=== PATIENT | male | born 2000 | race Caucasian/White ===

== ENCOUNTER 2021-08-12 15:26 | Emergency (ER) | payer BC, SELFPAY ==
[2021-08-12 15:33] VITALS: BP 147/84; PULSE 76; RESP 12; TEMP 36.5; O2SAT 100
--- NOTE | 2021-08-12 15:40 | ED.URI ---
HPI - URI/Sore Throat General Chief Complaint: Upper Respiratory Infection Stated Complaint: dx mono Time Seen by Provider: 08/12/21 15:40 Source: patient and family Mode of arrival: ambulatory Limitations: no limitations History of Present Illness HPI Narrative: Ezequiel Clark is a 21 yo male with no PMH who comes to express care with complaints of an otherwise diagnosed mono diagnosed 5 days ago. He was diagnosed at [place], has been taking steroids and is finished them. Continues to have sore throat and headache not feeling well Related Data Allergies Allergy/AdvReac Type Severity Reaction Status Date / Time No Known Allergies Allergy Verified 08/12/21 15:40 Review of Systems Review of Systems: CONSTITUTIONAL: Denies fever, chills, sweats. EYES: Denies visual changes, redness, discharge. ENT: Denies rhinorrhea, congestion, sore throat, otalgia. CARDIOVASCULAR: Denies chest pain, palpitations, edema. RESPIRATORY: Denies dyspnea, wheezing, cough GASTROINTESTINAL: Denies abdominal pain, nausea, vomiting, diarrhea. GENITOURINARY: Denies dysuria, hematuria, abnormal discharge SKIN: Denies rash or itching. NEUROLOGIC: Denies numbness, or focal weakness. PSYCHIATRIC: Denies anxiety or depression. [facility] Past Medical History Medical History Mononucleosis Social History Social History (Updated 08/12/21 @ 15:46 by Shakira Singh CNP) Living arrangements: dorm student housing Occupation/Education: student Comments At time of signature, I agree with nursing past medical, surgical, social and family history. There is no relevant family history pertinent to the presenting complaint. Patient's blood pressure is elevated during this visit due to situation for his visit and how poorly he felt, he has a PCP to follow-up with Exam Narrative: GENERAL: This is a well-nourished, well-developed patient, in mild distress. HEAD: normocephalic, atraumatic. EYES: PERRL. Sclera clear/white. Vision is grossly intact. EARS: External ears normal, auditory canals clear and without drainage, TMs normal without perforation. Hearing grossly intact. NOSE: External nose normal without nasal discharge, nares without redness, no rhinorrhea. THROAT: Mucous membranes moist, posterior pharynx dark erythema with 2+ tonsillar edema, voice is muffled NECK: Neck supple, -tender CARDIOVASCULAR: Regular rate and rhythm without murmurs, gallops, or rubs. RESPIRATORY: Clear to auscultation. Breath sounds equal bilaterally. Random wheezes at bases, rales, or rhonchi. GASTROINTESTINAL: Abdomen soft, non-tender, SKIN: warm, intact with no suspicious lesions or rash, good texture and turgor. NEURO: awake, alert, and oriented to person, place and time. There were no obvious focal neurologic abnormalities. Steady gait EXTREMITIES: Normal range of motion. BACK: Nontender without deformity Course Course Emergency Course: Patient comes after being diagnosed with mono and is taken 5 days of steroids, also still huge still has headache and not feeling well Strep test- negative Toradol and 60 of prednisone here- pt had vasovagal response to injection and was recovered on the floor- no injury- BP stable and drinking water before he left. Started on Medrol Dosepak, ibuprofen 400 every 6 hours, swish and swallow lidocaine Vital Signs Vital signs: Vital Signs Temperature 97.7 F 08/12/21 15:33 Pulse Rate 76 08/12/21 15:33 Respiratory Rate 12 08/12/21 15:33 Blood Pressure 147/84 H 08/12/21 15:33 Pulse Oximetry 100 08/12/21 15:33 Temperature 97.7 F 08/12/21 15:33 Pulse Rate 64 08/12/21 16:23 Respiratory Rate 16 08/12/21 16:23 Blood Pressure 142/77 H 08/12/21 16:23 Pulse Oximetry 100 08/12/21 16:23 MDM - URI/Sore Throat Differential Diagnosis Differential diagnosis: Likely upper respiratory infection, otitis media, sinusitis, viral infection, influenza, pharyngitis
[2021-08-12] MEDS: predniSONE 20 MG TABLET 60 MG PO (16:06)
[2021-08-12] MEDS: KETOROLAC (*BKC) 60 MG/2 ML VIAL 30 MG IM (16:07)
[2021-08-12 16:23] VITALS: BP 142/77; PULSE 64; RESP 16; O2SAT 100
== END 2021-08-12 16:38 | disposition home or self-care (01) ==
PROVIDERS: Emergency Provider Nurse Practitioner
DX: B27.10 Cytomegaloviral mononucleosis without complications (principal)
CPT/HCPCS: 87081; 87880; 96372; 99213; G0463; J1885; J7512